=== PATIENT | female | born 1965 | race African-American/Black ===

== ENCOUNTER 2025-03-15 13:41 | Emergency (ER) | payer OTHER ==
[~2025-03-15] VITALS: Ht 170.2 cm; Wt 74.8 kg
[2025-03-15] MEDS ORDERED: LIDOCAINE HCL 1% 20 ML VIAL ONE (15:24)
[2025-03-15] MEDS ORDERED: NEOMY/BACITRA/POLYMYXIN B OINT UD PACKET TP ONE (15:55)
[2025-03-15] MEDS: NEOMY/BACITRA/POLYMYXIN B OINT UD PACKET TP ONE (16:01)
[2025-03-15] MEDS ORDERED: HYDR-3972 PO (16:06)
[2025-03-15] MEDS ORDERED: CEPH500C2 PO (16:06)
[2025-03-15 16:20] VITALS: BP 151/80; TEMP 96.7; O2SAT 97
== END 2025-03-15 16:24 | disposition home or self-care (01) ==
LOC: ER 13:41
DX: S61.212A Laceration without foreign body of right middle finger without damage to nail, initial encounter (principal); Z60.2 Problems related to living alone; W26.0XXA Contact with knife, initial encounter; Y93.89 Activity, other specified; Y92.89 Other specified places as the place of occurrence of the external cause; Y99.8 Other external cause status
CPT/HCPCS: 12001; 99283; J3490; A4606; A4663

== ENCOUNTER 2025-03-27 11:27 | Emergency (ER) | payer OTHER ==
[~2025-03-27] VITALS: Ht 170.2 cm; Wt 74.8 kg
[~2025-03-27 11:27] MED LIST: CEPH500C2 PO; HYDR-3972 PO
[2025-03-27 11:31] VITALS: BP 144/87; O2SAT 98
== END 2025-03-27 11:58 | disposition home or self-care (01) ==
LOC: ER 11:27
DX: S61.212D Laceration without foreign body of right middle finger without damage to nail, subsequent encounter (principal); R20.3 Hyperesthesia; Z48.02 Encounter for removal of sutures; Z60.2 Problems related to living alone; X58.XXXD Exposure to other specified factors, subsequent encounter
CPT/HCPCS: A4606; A4663